=== PATIENT | male | born 2000 | race Two or more races ===

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

== ENCOUNTER 2023-11-09 02:40 | Emergency (ER) | payer BC, OTHER ==
[2023-11-09 02:48] VITALS: BP 118/82; PULSE 60; RESP 18; TEMP 97.9; BMI 20.7
== END 2023-11-09 03:52 | disposition home or self-care (01) ==
LOC: JER 02:40
DX: R19.7 Diarrhea, unspecified (principal); R63.0 Anorexia
CPT/HCPCS: 99283-25

== ENCOUNTER 2023-12-08 08:45 | Emergency (ER) | payer BC, OTHER ==
[2023-12-08 08:51] VITALS: BP 133/65; PULSE 91; RESP 18; TEMP 98.2; BMI 20.7
[2023-12-08] MEDS ORDERED: FAMOTIDINE 20 MG/50 ML IVPB 20 MG/50 ML MG IVPB ONE (09:44)
[2023-12-08] MEDS ORDERED: methylPREDNISolone NA SUCC 125 MG/2 ML VIAL ONE (09:44)
[2023-12-08] MEDS: SODIUM CHLORIDE 1,000 ML IV STA (09:50)
[2023-12-08] MEDS: methylPREDNISolone NA SUCC 125 MG/2 ML VIAL IVPB ONE (09:50)
[2023-12-08] MEDS: FAMOTIDINE 20 MG/50 ML IVPB 20 MG/50 ML MG IVPB ONE (09:50)
== END 2023-12-08 11:40 | disposition home or self-care (01) ==
LOC: JER 08:45
PROC: 3E033GC Introduction of Other Therapeutic Substance into Peripheral Vein, Percutaneous Approach (ICD-10-PCS; principal; 2023-12-08)
PROC: 3E033GC Introduction of Other Therapeutic Substance into Peripheral Vein, Percutaneous Approach (ICD-10-PCS; 2023-12-08)
PROC: 3E033GC Introduction of Other Therapeutic Substance into Peripheral Vein, Percutaneous Approach (ICD-10-PCS; 2023-12-08)
PROC: 3E0337Z Introduction of Electrolytic and Water Balance Substance into Peripheral Vein, Percutaneous Approach (ICD-10-PCS; 2023-12-08)
DX: L50.0 Allergic urticaria (principal); T78.1XXA Other adverse food reactions, not elsewhere classified, initial encounter
CPT/HCPCS: 99284-25